=== PATIENT | male | born 1985 | race Caucasian/White ===

== ENCOUNTER 2020-07-30 17:27 | Emergency (ER) | payer OTHER ==
[2020-07-30 17:36] VITALS: TEMP 98.5; BMI 26.6
--- NOTE | 2020-07-30 17:41 | PDOC ---
Rapid Medical Evaluation Chief Complaint: Overdose Time Seen by Provider: 07/30/20 17:36 Medical Evaluation: Allergies Allergy/AdvReac Type Severity Reaction Status Date / Time No Known Allergies Allergy Verified 07/30/20 17:30 07/30/20 17:36 I have performed a brief in-person evaluation of this patient. The patient presents with a chief complaint of: h/o ADHD on aderral present with complains of palpitations , numbness and tingling sensation s/p brittany drinking for the past 3 days and taking unknown number of Aderrals for the past 3 days. pt report he has been taking a handful but unsure exactly how many pills he has taken. Denies SI/HI Pertinent physical exam findings: anxious. JAYME. lungs CTAB. heart RRR in NAD I have ordered the following: EKG, labs The patient will proceed to the ED for further evaluation. Discharge Disposition - Diagnosis Overdose Qualifiers: Encounter type: initial encounter Injury intent: accidental or unintentional Qualified Code(s): T50.901A - Poisoning by unspecified drugs, medicaments and biological substances, accidental (unintentional), initial encounter - Discharge Dispostion Condition at time of disposition: Stable - Referrals - Patient Instructions - Post Discharge Activity
--- NOTE | 2020-07-30 17:58 | PDOC ---
History of Present Illness - General Chief Complaint: Overdose Stated Complaint: CHEST PAIN Time Seen by Provider: 07/30/20 17:36 History Source: Patient, Family Exam Limitations: No Limitations - History of Present Illness Initial Comments: 07/30/20 17:57 Neftali Guzman is an otherwise healthy 34M presenting with chest pain/palpitations in the setting of binge Adderal and EtOH use. Patient reports that he spent the Day weekend having a pool democrat at his home. Over the course of the 4 days, drank half a bottle of [place], 2 packs of beer per day, 3 Adderalls per day. Last EtOH/Adderall use last night at 7PM. This morning woke up feeling hung over with mild abd pain and nausea but also had palpitations and has had intermittent facial/hand numbness. Has never had palpitations before. Denies any LOC or falls. Denies chest pain, SOB, urinary symptoms, DIXON, vision changes, dizziness, weakness. No prior cardiac history. Does not daily drink alcohol, only occasionally like this . Denies any other substance use, tobacco use. No allergies. No PSH. Past History - Medical History Allergies/Adverse Reactions: Allergies Allergy/AdvReac Type Severity Reaction Status Date / Time No Known Allergies Allergy Verified 07/30/20 17:30 COPD: No Other medical history: ADHD - Immunization History Immunization Up to Date: No - Psycho-Social/Smoking History Smoking History: Current some day smoker Have you smoked in the past 12 months: Yes Information on smoking cessation initiated: No - Substance Abuse Hx (Audit-C & DAST Scrn) How often the patient has a drink containing alcohol: 2-4 times / month Number of drinks the patient has on a typical day: 3 or 4 How often the patient has six or more drinks on one occasion: Less than monthly Score: In Men: 4 or > Positive; In Women: 3 or > Positive: 4 Screen Result (Pos requires Nsg. Audit-10AR): Positive In the last yr the pt used illegal drug/Rx for NonMed reason: No Score: Yes response is considered Positive: 0 Screen Result (Positive result requires Nsg. DAST-10): Negative Review of Systems - Review of Systems Able to Perform ROS?: Yes Constitutional: No: Symptoms Reported HEENTM: No: Symptoms Reported Respiratory: No: Shortness of Breath, SOB with Exertion, SOB at Rest, Wheezing, Productive cough Cardiac (ROS): Yes: Palpitations. No: Chest Pain, Irregular Heart Rate, Lightheadedness, Syncope ABD/GI: Yes: Nausea, Abdominal cramping. No: Poor Appetite, Poor Fluid Intake, Vomiting : No: Symptoms Reported Musculoskeletal: No: Symptoms Reported Integumentary: No: Symptoms Reported Neurological: No: Symptoms reported Endocrine: No: Symptoms Reported Hematologic/Lymphatic: No: Symptoms Reported All Other Systems: Reviewed and Negative *Physical Exam - Vital Signs Last Vital Signs Temp Pulse Resp BP Pulse Ox 98.5 F 103 H 18 138/91 100 07/30/20 17:31 07/30/20 17:31 07/30/20 17:31 07/30/20 17:31 07/30/20 17:31 - Physical Exam General Appearance: Yes: Nourished, Appropriately Dressed, Obese, Other (resting in bed in NAD). No: Apparent Distress HEENT: positive: EOMI, MICHELLE, Normal Voice, Pharynx Normal, Hearing Grossly Normal. negative: Scleral Icterus (R), Scleral Icterus (L), Pharyngeal Erythema, Tonsillar Exudate, Tonsillar Erythema Neck: positive: Trachea midline, Supple. negative: Tender, Lymphadenopathy (R), Lymphadenopathy (L), Rigidity, Tender lateral, Tender midline Respiratory/Chest: positive: Lungs Clear, Normal Breath Sounds. negative: Chest Tender, Respiratory Distress, Accessory Muscle Use, Crackles, Rales, Rhonchi, Stridor, Wheezing Cardiovascular: positive: Regular Rhythm, Regular Rate. negative: Murmur Gastrointestinal/Abdominal: positive: Normal Bowel Sounds, Soft, Protuberent. negative: Tender, Organomegaly, Pulsatile Mass, Guarding, Rebound Musculoskeletal: positive: Normal Inspection. negative: CVA Tenderness, Decreased Range of Motion Extremity: positive: Normal Capillary Refill, Normal Inspection, Normal Range of Motion, Pelvis Stable. negative: Tender Integumentary: positive: Normal Color, Dry, Warm Neurologic: positive: chemical supervisor II-XII NML intact, Fully Oriented, Alert, Normal Mood/Affect, Normal Response, Motor Strength 5/5, Other (horizontal nystagmus). negative: Facial Droop, Sensory Deficit, Disoriented Medical Decision Making - Medical Decision Making 07/30/20 18:55 Patient reports facial numbness and palpitations after a long weekend of binge drinking EtOH and taking his Adderall, but has not had any EtOH or Adderall in the last 24 hours. Tachycardic on arrival but also anxious, has calmed down considerable. HR down to 88 in the room, satting 100% on RA. A/O x3, not intoxicated. No prior cardiac history, otherwise healthy, no concern for withdrawal. Evaluating for cardiac/metabolic problems with CBC/CMP/CP/ECG/CXR with lipase given alcohol use. Very anxious, but easily calms down. ECG sinus rhythm with sinus arrhythmia, HR 87, QTc 428, no KENDRA/D or TWI. CXR unremarkable. Labs sent. Will sign out to night team, plan f/u CXR and labs and likely discharge. Discharge - Discharge Information Problems reviewed: Yes Clinical Impression/Diagnosis: Palpitations Overdose Qualifiers: Encounter type: initial encounter Injury intent: accidental or unintentional Qualified Code(s): T50.901A - Poisoning by unspecified drugs, medicaments and biological substances, accidental (unintentional), initial encounter Condition: Stable - Follow up/Referral Referrals: Manish Bedolla MD [Primary Care Provider] - - Patient Discharge Instructions Patient Printed Discharge Instructions: DI for Palpitations, DI for Alcohol Abuse Additional Instructions: Today you were evaluated for palpitations after drinking alcohol and using Adderall. Your labs are all normal. Your x-ray is normal. Your symptoms are likely being caused by your alcohol and Adderall use and will go away with time. At home, take your Adderall as prescribed starting tomorrow, but refrain from drinking alcohol for the next week. If you have any worsening palpitations, chest pain, difficulty breathing, or any other new or concerning symptoms, please return to the emergency room. Please see your primary doctor for further care. - Post Discharge Activity
--- NOTE | 2020-07-30 18:34 | PDOC ---
Attending Attestation - Resident Resident Name: Fco Orellana - ED Attending Attestation I have performed the following: I have examined & evaluated the patient, The case was reviewed & discussed with the resident, I agree w/resident's findings & plan - HPI HPI: 07/30/20 18:33 Neftali Guzman is a 34M presenting with chest pain/palpitations in the setting of binge Adderal and EtOH use. He was binge drinking and having a good time this past weekend for labor day x 3 days, he would drink 2x 6-pack of beers per day, [place] today he started having chest palpitations, pressure, shortness of breath and diffuse abdominal discomfort. he admits to feeling hungover this morning no f/c, arnold, vomiting, diarrhea. denies other drug use. uses supplements for working out/bulking up. recent left axilla abscess s/p I&D, did not finish his antibiotics. 07/30/20 18:45 - Physicial Exam PE: 07/30/20 18:34 Agree with the resident's HPI and PE as documented in the electronic medical record. NAD, well appearing, EOMI, PERRL, nl conjunctiva, anicteric; neck supple. lungs clear, +mild tachycardia. abdomen soft nontender. No rebound, no guarding. Back nontender. EMANUEL x4, no focal neuro deficits. No peripheral edema. normal color for ethnicity, WWP. 07/30/20 18:34 - Medical Decision Making 07/30/20 18:34 Vital Signs Temp Pulse Resp BP Pulse Ox 98.5 F 103 H 18 138/91 100 07/30/20 17:31 07/30/20 17:31 07/30/20 17:31 07/30/20 17:31 07/30/20 17:31 vitals reviewed afebrile mild tachy likely sympathomimetic effect mildly hypertensive no respiratory distress Heart Score/ECG Review #1 ECG reviewed & interpreted by me at: 17:50 General ECG Interpretation: Sinus Rhythm, Normal Rate, Normal Intervals 07/30/20 18:44 EKG normal sinus rhythm at 87 bpm, no interval abnormalities, narrow QRS, ST and T wave segments and morphology normal. Discharge - Discharge Information Problems reviewed: Yes Clinical Impression/Diagnosis: Palpitations, Hangover effect, Medication side effects Condition: Stable - Admission No - Follow up/Referral Referrals: Manish Bedolla MD [Primary Care Provider] - - Patient Discharge Instructions - Post Discharge Activity
[2020-07-30 19:00] LABS: BASO % 1.4 % (0-2.0); EOS % 0.9 % (0-4.5); HEMATOCRIT 49.2 % (35.4-49); LYMPH % 15.5 % (8-40); MCH 31.6 pg (25.7-33.7); MCHC 34.7 g/dl (32.0-35.9); MEAN CELL VOLUME 91.1 fl (80-96); MONO % 7.2 % (3.8-10.2); WHITE BLOOD COUNT 8.4 K/mm3 (4.0-10.0)
[2020-07-30 19:21] LABS: ALBUMIN 4.1 g/dl (3.4-5.0); BILIRUBIN,TOTAL 0.9 mg/dL (0.2-1); BLOOD UREA NITROGEN 11.8 mg/dL (7-18); CREATININE 1.1 mg/dL (0.55-1.3); POTASSIUM 3.6 mmol/L (3.5-5.1); TOT PROT 7.6 g/dl (6.4-8.2)
[2020-07-30 19:24] LABS: LIPASE 95 U/L (73-393)
[2020-07-30] MEDS ORDERED: SODIUM CHLORIDE 0.9% 500 ML INFUS.BAG IV ONE (20:29)
[2020-07-30 20:41] VITALS: BP 123/86; PULSE 89
[2020-07-30 21:31] LABS: PLATELET COUNT 290 K/MM3 (134-434); PLATELET ESTIMATE ADEQUATE
--- NOTE | 2020-07-30 22:25 | PDOC ---
*Physical Exam - Vital Signs Last Vital Signs Temp Pulse Resp BP Pulse Ox 98.5 F 89 20 123/86 98 07/30/20 17:31 07/30/20 20:40 07/30/20 20:40 07/30/20 20:40 07/30/20 20:40 ED Treatment Course - LABORATORY CBC & Chemistry Diagram: 07/30/20 18:41 07/30/20 18:41 - ADDITIONAL ORDERS Additional order review: Laboratory Results 07/30/20 07/30/20 07/30/20 20:38 18:41 18:41 Sodium 137 Potassium 3.6 Chloride 101 Carbon Dioxide 30 Anion Gap 6 L BUN 11.8 Creatinine 1.1 Est GFR (CKD-EPI)AfAm 102.40 Est GFR (CKD-EPI)NonAf 88.36 Random Glucose 121 H Calcium 9.0 Total Bilirubin 0.9 AST 19 ALT 49 Alkaline Phosphatase 77 Creatine Kinase 190 Creatine Kinase Index No Result Required. CK-MB (CK-2) < 1.0 Troponin I < 0.02 < 0.02 Total Protein 7.6 Albumin 4.1 Lipase 95 TSH 2.00 07/30/20 18:41 RBC 5.40 MCV 91.1 MCHC 34.7 RDW 13.0 MPV 9.0 Neutrophils % 75.0 Lymphocytes % 15.5 Monocytes % 7.2 Eosinophils % 0.9 Basophils % 1.4 - Medications Given in the ED: ED Medications Discontinued Medications Generic Name Dose Route Start Last Admin Trade Name Freq PRN Reason Stop Dose Admin Sodium Chloride 1,000 ml 07/30/20 20:29 07/30/20 20:42 Normal Saline - IV 07/30/20 20:30 1,000 ml ONCE ONE Administration Medical Decision Making - Medical Decision Making 07/30/20 22:22 Patient signed out to me pending labs and cxr. - Labs unremarkable - CXR not changed from prior Re-assessment: When I saw the patient he said he felt dehydrated and still had abdominal pain. Plan: IV hydration, CTAP, analgesia, re-assess - Giving patient 1 L of fluid, sending a tsh and repeat trop - repeat Labs unremarkable - Patient feeling better after IV hydration CTAP: CT scan of the abdomen and pelvis following oral and intravenous contrast. Coronal and sagittal reformatted images were obtained 100 cc of Omnipaque 350 was intravenously injected Comparison: None available There is an approximately 5.5 mm pleural-based nodule in the left lower lobe, laterally, axial imag e #11. The rest of the included lower lung appears unremarkable. The heart is within normal limits i n size. Evaluation of the liver, spleen, pancreas, gallbladder, both adrenal glands and both kidneys appear unremarkable except for a cyst in the left renal upper pole measuring 1.3 cm. Partially distended stomach without wall thickening. There is no evidence of small bowel obstruction. Normal-que earing terminal ileum and appendix. Normal stool burden in the colon without wall thickening. Questionable few tiny diverticula without evidence of acute diverticulitis. Partially distended urinary bladder without wall thickening. Normal size prostate gland. Perirectal and pericecal fat are clear. No free air, free fluid or enlarged lymph nodes are identified. Normal size and enhancement of the abdominal aorta down through its bifurcation. Bilateral spondylolysis of L5 pars interarticularis. Visualized osseous structures appear otherwise intact Impression: No gross organ injury, free fluid or free air are identified in the abdomen and pelvis. Small left renal cyst measuring 1.3 cm. There is no evidence of small bowel obstruction. 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 Otherwise, visualized osseous structures appear intact - Patient given copy of his CT scan and instructed to follow up with PCP regarding these findings. The patient appears clinically sober, has no evidence of clinical intoxication, is A&O x4, has no sustained nystagmus, and appears to be capable and have capacity to make reasonable decisions. The patient states they are currently in the emergency department, knows who the president is, states the correct time, correct day, and correct month. The patient is ambulatory in ER and has walked around the nursing station multiple times with a straight and steady gait, and is not ataxic. Tolerating PO well, ate a sandwich and drank juice. Denies having any SI or HI. Patient states will not be driving home. I discussed the physical exam findings, ancillary test results and final diagnoses with the patient. I answered all of the patient's questions. The patient was satisfied with the care received and felt comfortable with the discharge plan and treatment plan. The patient will call their primary care physician within 24 hours to arrange follow-up and will return to the Emergency Department with any new, persistent or worsening symptoms. Dispo: Home with PCP fu Please note, this clinical encounter is taking place during a federal and state health care emergency attributable to the novel Murphy Virus pandemic. The [place] of the Department of Health and Human Services has declared, pursuant to the Public Health Service Act 319F-3 (42 U.S.C. 247d-6d), that a covered persons activities related to medical countermeasures against COVID-19 will be immune from liability under Federal and State law. Discharge - Discharge Information Problems reviewed: Yes Clinical Impression/Diagnosis: Palpitations, Medication side effects Hangover effect Qualifiers: Complication of substance-induced condition: uncomplicated Qualified Code(s): F 10.120 - Alcohol abuse with intoxication, uncomplicated Condition: Stable Disposition: HOME - Admission No - Follow up/Referral Referrals: Manish Bedolla MD [Primary Care Provider] - - Patient Discharge Instructions Patient Printed Discharge Instructions: DI for Alcohol Abuse, DI for Palpitations Additional Instructions: Today you were evaluated for palpitations after drinking alcohol and using Adderall. Your labs are all normal. Your x-ray is normal. Your symptoms are likely being caused by your alcohol and Adderall use and will go away with time. At home, take your Adderall as prescribed starting tomorrow, but refrain from drinking alcohol for the next week. If you have any worsening palpitations, ch est pain, difficulty breathing, or any other new or concerning symptoms, please return to the emergency room. Please see your primary doctor for further care. We did a cat scan of your abdomen to make sure you had no dangerous infection. You were handed a copy of the cat scan results which you need to go and discuss with your primary care doctor. You must return to the Emergency Department with any new complaints, if your symptoms persist and do not improve or if you develop any other new or worsening concerns. You can take over the counter Tylenol or Advil as needed for pain. Take as dire cted on the package insert. Do not exceed the recommended dosage. As discussed, please call to follow up with your Primary Care physician in 1-2 days to discuss what happened to you in the emergency room, and make sure you are being looked after and taken care of. Your emergency room visit is not complete without this follow up appointment. Please read the attached handouts for further information about your ER visit and what you should do moving forward. Thank you for coming to the [facility]. We hope you feel better soon! Print Language: [place] CITIZEN - Post Discharge Activity
--- NOTE | 2020-07-31 13:29 | EKG ---
Test Reason : Blood Pressure : / mmHG Vent. Rate : 087 BPM Atrial Rate : 087 BPM P-R Int : 146 ms QRS Dur : 100 ms QT Int : 356 ms P-R-T Axes : 040 059 026 degrees QTc Int : 428 ms SINUS RHYTHM WITH MARKED SINUS ARRHYTHMIA OTHERWISE NORMAL ECG Confirmed by MD SANTA, MICAH ([id number]) on 07/31/2020 1:29:12 PM Referred By: Confirmed By:MICAH PRATT MD
== END 2020-07-31 01:05 | disposition home or self-care (01) ==
LOC: JER 17:27
DX: T50.901A Poisoning by unspecified drugs, medicaments and biological substances, accidental (unintentional), initial encounter (principal); R00.2 Palpitations
CPT/HCPCS: 36415; 71045-TC-FY; 74177-TC; 80053; 80307; 82550; 82553; 83690; 84443; 84484; 85025; 93005; 93010; 99285-25

== ENCOUNTER 2021-10-29 05:18 | Day surgery (SDC) | payer OTHER ==
[2021-10-27 09:13] VITALS: BMI 30.4
[2021-10-29] MEDS ORDERED: MIDAZOLAM HCL 2 MG/2 ML SINGLE DOSE VIAL ONE (08:39)
[2021-10-29 09:18] VITALS: TEMP 97.1
[2021-10-29 10:01] VITALS: BP 115/75; PULSE 58
== END 2021-10-29 10:01 | disposition home or self-care (01) ==
LOC: JASU-ENDO 05:18
PROVIDERS: ATTEND Internal Medicine Gastroenterology
PROC: 0DB68ZX Excision of Stomach, Via Natural or Artificial Opening Endoscopic, Diagnostic (ICD-10-PCS; 2021-10-29)
PROC: 0DB98ZX Excision of Duodenum, Via Natural or Artificial Opening Endoscopic, Diagnostic (ICD-10-PCS; principal; 2021-10-29 08:50)
DX: K29.50 Unspecified chronic gastritis without bleeding (principal); K44.9 Diaphragmatic hernia without obstruction or gangrene

== ENCOUNTER 2023-12-29 04:34 | Day surgery (SDC) | payer OTHER ==
[2023-12-23 13:06] VITALS: BMI 31.0
[2023-12-29 08:37] VITALS: TEMP 98.7
[2023-12-29 09:17] VITALS: BP 98/57; PULSE 66; RESP 14
== END 2023-12-29 09:21 | disposition home or self-care (01) ==
LOC: JASU-ENDO 04:34
PROVIDERS: ATTEND Internal Medicine Gastroenterology
PROC: 0DBK8ZX Excision of Ascending Colon, Via Natural or Artificial Opening Endoscopic, Diagnostic (ICD-10-PCS; principal; 2023-12-29 08:00)
DX: Z12.11 Encounter for screening for malignant neoplasm of colon (principal); D12.2 Benign neoplasm of ascending colon; K57.30 Diverticulosis of large intestine without perforation or abscess without bleeding; K64.8 Other hemorrhoids